=== PATIENT | male | born 1985 | race Caucasian/White ===

== ENCOUNTER 2023-01-13 07:27 | Outpatient (OUT) | payer BC, SELFPAY ==
[2023-01-13 07:44] LABS: Basophils Percent Auto 0.8 % (0.2-2.0); Eosinophils Absolute Auto 0.2 10^3/uL (0.0-0.7); Hematocrit 41.8 % (42.0-54.0); Hemoglobin 14.6 g/dL (14.0-18.0); Immature Granulocytes Abs Auto 0.01 10^3/uL (0.00-0.03); Immature Granulocytes Pct Auto 0.2 % (0.0-0.5); Lymphocytes Absolute Auto 2.6 10^3/uL (1.2-3.8); Lymphocytes Percent Auto 53.1 % (20.5-60.0); Mean Corpuscular HGB Conc 34.9 g/dL (29.9-35.2); Mean Corpuscular Hemoglobin 30.4 pg (25.9-34.0); Mean Corpuscular Volume 87.1 fL (80.0-94.0); Mean Platelet Volume 9.9 fL (9.5-13.5); Monocytes Absolute Auto 0.6 10^3/uL (0.3-0.8); Monocytes Percent Auto 11.9 % (1.7-12.0); Neutrophils Absolute Auto 1.5 10^3/uL (1.4-6.5); Platelet Count 203 10^3/uL (150-450); Red Cell Distribution Width 12.8 % (11.0-15.0)
[2023-01-13 08:14] LABS: Estimated Average Glucose 100 mg/dL; Glycohemoglobin A1C 5.1 % (4.5-6.2)
[2023-01-13 08:30] LABS: Alanine Aminotransferase 27 U/L (16-63); Albumin Globulin Ratio 1.4; Albumin Level 4.3 g/dL (3.4-5.0); Alkaline Phosphatase 46 U/L (46-116); Anion Gap 8.8; Aspartate Amino Transferase 16 U/L (15-37); BUN Creatinine Ratio 18.8; Bilirubin Total 0.5 mg/dL (0.2-1.0); Calcium 8.9 mg/dL (8.5-10.1); Carbon Dioxide 29.6 mmol/L (21.0-32.0); Chloride 105 mmol/L (98-107); Chol HDL Ratio 2.8; Cholesterol 198 mg/dL (<=200); Estimated GFR (African America >60 (>=60); Estimated GFR (Non-African Ame >60 (>=60); Globulin 3.1 g/dL; Glucose 100 mg/dL (74-106); HDL Cholesterol 71 mg/dL (40-60); Potassium 4.4 mmol/L (3.5-5.1); Sodium 139 mmol/L (136-145); Thyroid Stimulating Hormone 2.508 uIU/mL (0.358-3.740); Total Protein 7.4 g/dL (6.4-8.2); Triglycerides 52 mg/dL (<=150); VLDL CHOLESTEROL 10.4 mg/dL
[2023-01-13 08:55] LABS: Prostate Specific Antigen Scrn 0.38 ng/mL (<=4.00)
== END 2023-01-13 07:28 | disposition home or self-care (01) ==
LOC: LAB 07:32
PROVIDERS: PCP Family Medicine; Visit Provider Family Medicine
DX: Z00.00 Encounter for general adult medical examination without abnormal findings (principal)
CPT/HCPCS: 36415; 80053; 80061; 83036; 84443; 85025; G0103

== ENCOUNTER 2024-02-20 13:49 | Outpatient (OUT) | payer BC, SELFPAY | END 2024-02-20 13:50 | disposition home or self-care (01) | LOC: PST 13:49 | PROVIDERS: PCP Family Medicine; Visit Provider Surgery | DX: Z01.818 Encounter for other preprocedural examination (principal); Z12.11 Encounter for screening for malignant neoplasm of colon; Z80.0 Family history of malignant neoplasm of digestive organs ==

== ENCOUNTER 2024-02-28 07:20 | Day surgery (SDC) | payer BC, SELFPAY ==
--- NOTE | 2024-02-28 | OP_ITS ---
OPERATION DATE: 02/28/2024 PREOPERATIVE DIAGNOSIS: Personal history of colon polyps, family history of colon cancer. POSTOPERATIVE DIAGNOSIS: 2 mm distal sigmoid polyp. PROCEDURE: Colonoscopy to cecum with cold biopsy forceps polypectomy x1. SURGEON: Stevan Moon M.D. ANESTHESIA: Monitored anesthesia care. ESTIMATED BLOOD LOSS: Less than 1 mL. INDICATIONS AND CONSENT: Patient is a 39-year-old male with a personal history of colon polyps, as well as a family history of colon cancer. Indications, risks, benefits, alternatives of proceeding with colonoscopy were explained extensively to the patient, including the risks of bleeding, colon perforation or anesthetic complications. All of his questions were answered. Informed consent was obtained. PROCEDURE: Patient brought to the operating room, placed in the left lateral decubitus position. Monitored anesthesia care was provided. Rectal exam was performed which showed no masses or blood. The scope was inserted into the anal canal. Under direct visualization was advanced. It was advanced to the cecum where cecal markings were clearly identified. There was noted to be a good prep. Upon withdrawal of the scope, mucosal surfaces were carefully examined. There were no mass lesions or inflammatory changes. No significant diverticulosis. In the distal sigmoid, there was noted to be a 2 mm sessile polyp that was removed with cold biopsy forceps with good hemostasis. The scope was retroflexed in the anal canal. There was no significant hemorrhoidal disease. Scope was then withdrawn. Patient tolerated procedure well, was sent to recovery room in good condition. Follow up colonoscopy likely in five years. CC: Jaime Sam M.D. [facility]
--- OUTSIDE RECORDS SUMMARY | 2024-02-28 07:23 | XMS_ITS | CCD ---
Author Organization [facility] Inform ion [facility] Care Team Providers Care Senior Datastage Developer Name Role Phone Gildardo Jiménez Unavailable Unavailable Gildardo Jiménez Unavailable Unavailable Ralph, Luli Unavailable Unavailable Ralph, Luli Unavailable Unavailable Angelina Chelsey Unavailable Unavailable Ralph, Luli Unavailable Unavailable Ralph, Luli Unavailable Unavailable Angelina, Chelsey Unavailable Unavailable Ralph, Luli Unavailable Unavailable Ralph, Luli Unavailable Unavailable Problems Active Problems Problem Classification Problem Date Documented Da te Episodic/Chronic Malaise and fatigue (1 source) Other fatigue; Translations: [OTHER FATIGUE] Onset: 02-21-2018 Episodic Past or Other Problems Problem Classification Problem Date Documented Da te Episodic/Chronic Contraceptive and procreative management (1 source) Encounter for sterilization; Translations: [ENCOUNTER FOR STERILIZATION] Onset: 04-05-2017 Episodic Results Test Name Value Interpretation Reference Range Facil ity CBC/DIFF GROUPon 02-21-2018 ATYPICAL REACTIVE LYMPHS FEW Normal [facility] Comment on above: Order Comment: REASO N FOR EXAM Z00.00@02/21/18 181: CBC/DIFF GROUP added. RFLXG = DIFF. Performed By: #### Z CBCGR ####MAIN LABCLIA:[id number] [place] [address] Eosinophils Auto #/vol (Bld) 52 /cmm Normal <432 [facility] Comment on above: Order Comment: REASO N FOR EXAM Z00.00@02/21/181811: CBC/DIFF GROUP added. RFLXG = DIFF. Performed By: #### Z CBCGR ####MAIN LABCLIA:[id number] [place] [address] Eosinophils/100 WBC Auto (Bld) 1 % Normal <4 [facility] Comment on above: Order Comment: REASO N FOR EXAM Z00.00@02/21/181811: CBC/DIFF GROUP added. RFLXG = DIFF. Performed By: #### Z CBCGR ####MAIN LABCLIA:[id number] [facility] [place] [address] Lymphocytes Auto #/vol (Bld) 2288 /cmm Normal [phone] [facility] Comment on above: Order Comment: REASO N FOR EXAM Z00.00@02/21/181811: CBC/DIFF GROUP added. RFLXG = DIFF. Performed By: #### Z CBCGR ####MAIN LABCLIA:[id number] [place] [address] Lymphocytes/100 WBC Auto (Bld) 44 % Normal 20-44 [facility] Comment on above: Order Comment: REASO N FOR EXAM Z00.00@02/21/181811: CBC/DIFF GROUP added. RFLXG = DIFF. Performed By: #### Z CBCGR ####MAIN LABCLIA:[id number] [place] [address] Monocytes Auto #/vol (Bld) 676 /cmm Normal 96-972 [facility] Comment on above: Order Comment: REASO N FOR EXAM Z00.00@02/21/181811: CBC/DIFF GROUP added. RFLXG = DIFF. Performed By: #### Z CBCGR ####MAIN LABCLIA:[id number] [place] [address] Monocytes/100 WBC Auto (Bld) 13 % High 2-9 [facility] Comment on above: Order Comment: REASO N FOR EXAM Z00.00@02/21/181811: CBC/DIFF GROUP added. RFLXG = DIFF. Performed By: #### Z CBCGR ####MAIN LABCLIA:[id number] [facility] [place] [address] Neutrophils Auto #/vol (Bld) 2184 /cmm Low 1048-6249 [facility] Comment on above: Order Comment: REASO N FOR EXAM Z00.00@02/21/181811: CBC/DIFF GROUP added. RFLXG = DIFF. Performed By: #### Z CBCGR ####MAIN LABCLIA:[id number] [place] [address] Neutrophils/100 WBC Auto (Bld) 42 % Low 50-70 [facility] Comment on above: Order Comment: REASO N FOR EXAM Z00.00@02/21/181811: CBC/DIFF GROUP added. RFLXG = DIFF. Performed By: #### Z CBCGR ####MAIN LABCLIA:[id number] [place] [address] NORMOCHROMIC YES Normal [facility] Comment on above: Order Comment: REASO N FOR EXAM Z00.00@02/21/181811: CBC/DIFF GROUP added. RFLXG = DIFF. Performed By: #### Z CBCGR ####MAIN LABCLIA:[id number] [place] [address] NORMOCYTIC YES Normal [facility] Comment on above: Order Comment: REASO N FOR EXAM Z00.00@02/21/181811: CBC/DIFF GROUP added. RFLXG = DIFF. Performed By: #### Z CBCGR ####MAIN LABCLIA:[id number] [place] [address] Platelets Auto #/vol (Bld) NORMAL [facility] Comment on above: Order Comment: REASO N FOR EXAM Z00.00@02/21/181811: CBC/DIFF GROUP added. RFLXG = DIFF. Performed By: #### Z CBCGR ####MAIN LABCLIA:[id number] [place] [address] TOTAL CELLS COUNTED 100 Normal [facility] Comment on above: Order Comment: REASO N FOR EXAM Z00.00@02/21/181811: CBC/DIFF GROUP added. RFLXG = DIFF. Performed By: #### Z CBCGR ####MAIN LABCLIA:[id number] [place] [address] Erythrocyte distribution width Auto Ratio (RBC) 13.6 % Normal 11.5-14.5 [facility] Comment on above: Order Comment: REASO N FOR EXAM Z00.00@02/21/181811: CBC/DIFF GROUP added. RFLXG = DIFF. Performed By: #### Z CBCGR ####MAIN LABCLIA:[id number] [place] [address] Hematocrit Auto Volume Fraction (Bld) 43.2 % Normal 40.0-54.0 [facility] Comment on above: Order Comment: REASO N FOR EXAM Z00.00@02/21/181811: CBC/DIFF GROUP added. RFLXG = DIFF. Performed By: #### Z CBCGR ####MAIN LABCLIA:[id number] [place] [address] Hemoglobin mass conc (Bld) 15.1 g/dL Normal 13.5-18.0 [facility] Comment on above: Order Comment: REASO N FOR EXAM Z00.00@02/21/181811: CBC/DIFF GROUP added. RFLXG = DIFF. Performed By: #### Z CBCGR ####MAIN LABCLIA:[id number] [place] [address] MCH Auto Entitic mass (RBC) 35.0 g/dL Normal 32.0-36.0 [facility] Comment on above: Order Comment: REASO N FOR EXAM Z00.00@02/21/181811: CBC/DIFF GROUP added. RFLXG = DIFF. Performed By: #### Z CBCGR ####MAIN LABCLIA:[id number] [place] [address] MCH Auto Entitic mass (RBC) 31.5 pg High 27.0-31.0 [facility] Comment on above: Order Comment: REASO N FOR EXAM Z00.00@02/21/181811: CBC/DIFF GROUP added. RFLXG = DIFF. Performed By: #### Z CBCGR ####MAIN LABCLIA:[id number] [facility] [place] [address] MCV Auto Entitic volume (RBC) 90.0 fL Normal 80.0-96.0 [facility] Comment on above: Order Comment: REASO N FOR EXAM Z00.00@02/21/181811: CBC/DIFF GROUP added. RFLXG = DIFF. Performed By: #### Z CBCGR ####MAIN LABCLIA:[id number] [facility] [place] [address] Platelets Auto #/vol (Bld) 228 10 3/cmm Normal 130-400 [facility] Comment on above: Order Comment: REASO N FOR EXAM Z00.00@02/21/181811: CBC/DIFF GROUP added. RFLXG = DIFF. Performed By: #### Z CBCGR ####MAIN LABCLIA:[id number] [facility] [place] [address] RBC Auto #/vol (Bld) 4.80 10 6/cmm Normal 4.60-6.20 [facility] Comment on above: Order Comment: REASO N FOR EXAM Z00.00@02/21/181811: CBC/DIFF GROUP added. RFLXG = DIFF. Performed By: #### Z CBCGR ####MAIN LABCLIA:[id number] [place] [address] WBC Auto #/vol (Bld) 5.2 10 3/cmm Normal 4.8-10.8 [facility] Comment on above: Order Comment: REASO N FOR EXAM Z00.00@02/21/181811: CBC/DIFF GROUP added. RFLXG = DIFF. Performed By: #### Z CBCGR ####MAIN LABCLIA:[id number] [facility] [place] [address] COMPREHENSIVE METABOLIC PANE Alf 02-21-2018 Albumin mass conc 4.8 g/dL High 3.0-4.5 [facility] Comment on above: Order Comment: REASO N FOR EXAM Z00.00 Performed By: #### C MP, VASR ####MAIN LABCLIA:[id number] [facility] [place] [address] Albumin/Globulin mass ratio 1.8 {ratio} High 1-1.4 [facility] Comment on above: Order Comment: REASO N FOR EXAM Z00.00 Performed By: #### C MP, VASR ####MAIN LABCLIA:[id number] [facility] [place] [address] ALP enzyme act/vol 43 U/L Normal 40-129 [facility] Comment on above: Order Comment: REASO N FOR EXAM Z00.00 Performed By: #### C MP, VASR ####MAIN LABCLIA:[id number] [facility] [place] [address] ALT enzyme act/vol 23 U/L Normal 0-41 [facility] Comment on above: Order Comment: REASO N FOR EXAM Z00.00 Performed By: #### C CHANA, VASR ####MAIN LABCLIA:[id number] [facility] [place] [address] Anion gap 3 molar conc 16 mmol/L Normal 9-18 [facility] Comment on above: Order Comment: REASO N FOR EXAM Z00.00 Performed By: #### C CHANA, VASR ####MAIN LABCLIA:[id number] [facility] [place] [address] AST enzyme act/vol 22 U/L Normal 0-40 [facility] Comment on above: Order Comment: REASO N FOR EXAM Z00.00 Performed By: #### C CHANA, VASR ####MAIN LABCLIA:[id number] [facility] [place] [address] Bilirubin mass conc 0.5 mg/dL Normal 0.2-1.2 [facility] Comment on above: Order Comment: REASO N FOR EXAM Z00.00 Performed By: #### C CHANA, VASR ####MAIN LABCLIA:[id number] [facility] [place] [address] Calcium mass conc 10.0 mg/dL Normal 8.6-10.0 [facility] Comment on above: Order Comment: REASO N FOR EXAM Z00.00 Performed By: #### C MP, VASR ####MAIN LABCLIA:[id number] [facility] [place] [address] Chloride molar conc 100 mmol/L Normal 98-107 [facility] Comment on above: Order Comment: REASO N FOR EXAM Z00.00 Performed By: #### C CHANA, VASR ####MAIN LABCLIA:[id number] [place] [address] CO2 molar conc 29 mmol/L Normal 22-29 [facility] Comment on above: Order Comment: REASO N FOR EXAM Z00.00 Performed By: #### C MP, VASR ####MAIN LABCLIA:[id number] [facility] [place] [address] Creatinine mass conc 0.89 mg/dL Normal 0.70-1.20 [facility] Comment on above: Order Comment: REASO N FOR EXAM Z00.00 Performed By: #### C CHANA, VASR ####MAIN LABCLIA:[id number] [facility] [place] [address] GFR/1.73 sq M.predicted MDRD vol rate/area 103 /1.73 m2 Normal >60 mL/min [facility] Comment on above: Order Comment: REASO N FOR EXAM Z00.00 Result Comment: Norm al RangeStage Description:1 Normal or Increased GFR >=902 Mild Decrease in GFR 60-903 Moderately Decreased GFR 30-594 Severely Decreased GFR 15-295 Kidney Failure <15 Performed By: #### C CHANA, VASR ####MAIN LABCLIA:[id number] [facility] [place] [address] Globulin Calculated mass conc (S) 2.6 g/dL Normal 2.3-3.5 [facility] Comment on above: Order Comment: REASO N FOR EXAM Z00.00 Performed By: #### C CHANA, VASR ####MAIN LABCLIA:[id number] [facility] [place] [address] Glucose mass conc 87 mg/dL Normal 74-109 [facility] Comment on above: Order Comment: REASO N FOR EXAM Z00.00 Performed By: #### C MP, VASR ####MAIN LABCLIA:[id number] [facility] [place] [address] Potassium molar conc 4.5 mmol/L Normal 3.5-5.1 [facility] Comment on above: Order Comment: REASO N FOR EXAM Z00.00 Performed By: #### C MP, VASR ####MAIN LABCLIA:[id number] [facility] [place] [address] Protein mass conc 7.4 g/dL Normal 6.4-8.3 [facility] Comment on above: Order Comment: REASO N FOR EXAM Z00.00 Performed By: #### C MP, VASR ####MAIN LABCLIA:[id number] [facility] [place] [address] Sodium molar conc 140 mmol/L Normal 136-145 [facility] Comment on above: Order Comment: REASO N FOR EXAM Z00.00 Performed By: #### C MP, VASR ####MAIN LABCLIA:[id number] [facility] [place] [address] Urea nitrogen mass conc (Bld) 16 mg/dL Normal 6-20 [facility] Comment on above: Order Comment: REASO N FOR EXAM Z00.00 Performed By: #### C MP, VASR ####MAIN LABCLIA:[id number] [facility] [place] [address] Urea nitrogen/Creatinine mass ratio 18.0 mg/mg Normal [facility] Comment on above: Order Comment: REASO N FOR EXAM Z00.00 Performed By: #### C MP, VASR ####MAIN LABCLIA:[id number] [facility] [place] [address] FREE T4 (FREE THYROXINE)on 0 02-21-2018 T4 free mass conc 1.24 ng/dL Normal 0.93-1.7 [facility] Comment on above: Order Comment: REASO N FOR EXAM R53.83 Performed By: #### T 4F, TSH ####MAIN LABCLIA:[id number] [facility] [place] [address] THYROID STIMULATING HORMONEo n 02-21-2018 Thyrotropin Qn 1.85 uIU/mL Normal 0.27-4.20 [facility] Comment on above: Order Comment: REASO N FOR EXAM R53.83 Performed By: #### T 4F, TSH ####MAIN LABCLIA:[id number] [facility] [place] [address] VASCULAR RISK PANELon 2017 Cholesterol in HDL mass conc 52 mg/dL Low >55 [facility] Comment on above: Order Comment: REASO N FOR EXAM Z00.00 Performed By: #### C MP, VASR ####MAIN LABCLIA:[id number] [facility] [place] [address] Cholesterol in LDL mass conc 121 mg/dL Normal <129 [facility] Comment on above: Order Comment: REASO N FOR EXAM Z00.00 Performed By: #### C MP, VASR ####MAIN LABCLIA:[id number] [facility] [place] [address] Cholesterol mass conc 193 mg/dL Normal 0-199 [facility] Comment on above: Order Comment: REASO N FOR EXAM Z00.00 Performed By: #### C MP, VASR ####MAIN LABCLIA:[id number] [facility] [place] [address] Triglyceride mass conc 102 mg/dL Normal 0-199 [facility] Comment on above: Order Comment: REASO N FOR EXAM Z00.00 Performed By: #### C MP, VASR ####MAIN LABCLIA:[id number] [facility] [place] [address] VLDL CHOLESTEROL 20 mg/dL Normal 5-40 [facility] Comment on above: Order Comment: REASO N FOR EXAM Z00.00 Performed By: #### C MP, VASR ####MAIN LABCLIA:[id number] [facility] [place] [address] COMPREHENSIVE METABOLIC PANE Alf 04-18-2017 Albumin mass conc 4.7 g/dL High 3.0-4.5 [facility] Comment on above: Order Comment: REASO N FOR EXAM Z00.00Z00.00 Performed By: #### C MP, VASR ####MAIN LABCLIA:[id number] [facility] [place] [address] Albumin/Globulin mass ratio 2.0 {ratio} High 1-1.4 [facility] Comment on above: Order Comment: REASO N FOR EXAM Z00.00Z00.00 Performed By: #### C MP, VASR ####MAIN LABCLIA:[id number] [facility] [place] [address] ALP enzyme act/vol 47 U/L Normal 40-129 [facility] Comment on above: Order Comment: REASO N FOR EXAM Z00.00Z00.00 Performed By: #### C MP, VASR ####MAIN LABCLIA:[id number] [place] [address] ALT enzyme act/vol 15 U/L Normal 0-41 [facility] Comment on above: Order Comment: REASO N FOR EXAM Z00.00Z00.00 Performed By: #### C CHANA, VASR ####MAIN LABCLIA:[id number] [place] [address] Anion gap 3 molar conc 15 mmol/L Normal 9-18 [facility] Comment on above: Order Comment: REASO N FOR EXAM Z00.00Z00.00 Performed By: #### C CHANA, VASR ####MAIN LABCLIA:[id number] [facility] [place] [address] AST enzyme act/vol 17 U/L Normal 0-40 [facility] Comment on above: Order Comment: REASO N FOR EXAM Z00.00Z00.00 Performed By: #### C CHANA, VASR ####MAIN LABCLIA:[id number] [place] [address] Bilirubin mass conc 0.2 mg/dL Normal 0.2-1.2 [facility] Comment on above: Order Comment: REASO N FOR EXAM Z00.00Z00.00 Performed By: #### C CHANA, VASR ####MAIN LABCLIA:[id number] [facility] [place] [address] Calcium mass conc 9.6 mg/dL Normal 8.6-10.0 [facility] Comment on above: Order Comment: REASO N FOR EXAM Z00.00Z00.00 Performed By: #### C MP, VASR ####MAIN LABCLIA:[id number] [facility] [place] [address] Chloride molar conc 100 mmol/L Normal 98-107 [facility] Comment on above: Order Comment: REASO N FOR EXAM Z00.00Z00.00 Performed By: #### C CHANA, VASR ####MAIN LABCLIA:[id number] [facility] [place] [address] CO2 molar conc 30 mmol/L High 22-29 [facility] Comment on above: Order Comment: REASO N FOR EXAM Z00.00Z00.00 Performed By: #### C CHANA, VASR ####MAIN LABCLIA:[id number] [facility] [place] [address] Creatinine mass conc 0.74 mg/dL Normal 0.70-1.20 [facility] Comment on above: Order Comment: REASO N FOR EXAM Z00.00Z00.00 Performed By: #### C CHANA, VASR ####MAIN LABCLIA:[id number] [facility] [place] [address] GFR/1.73 sq M.predicted MDRD vol rate/area 129 /1.73 m2 Normal >60 mL/min [facility] Comment on above: Order Comment: REASO N FOR EXAM Z00.00Z00.00 Result Comment: Norm al RangeStage Description:1 Normal or Increased GFR >=902 Mild Decrease in GFR 60-903 Moderately Decreased GFR 30-594 Severely Decreased GFR 15-295 Kidney Failure <15 Performed By: #### C CHANA, VASR ####MAIN LABCLIA:[id number] [facility] [place] [address] Globulin Calculated mass conc (S) 2.3 g/dL Normal 2.3-3.5 [facility] Comment on above: Order Comment: REASO N FOR EXAM Z00.00Z00.00 Performed By: #### C CHANA, VASR ####MAIN LABCLIA:[id number] [facility] [place] [address] Glucose mass conc 81 mg/dL Normal 74-109 [facility] Comment on above: Order Comment: REASO N FOR EXAM Z00.00Z00.00 Performed By: #### C CHANA, VASR ####MAIN LABCLIA:[id number] [facility] [place] [address] Potassium molar conc 4.3 mmol/L Normal 3.5-5.1 [facility] Comment on above: Order Comment: REASO N FOR EXAM Z00.00Z00.00 Performed By: #### C MP, VASR ####MAIN LABCLIA:[id number] [facility] [place] [address] Protein mass conc 7.0 g/dL Normal 6.4-8.3 [facility] Comment on above: Order Comment: REASO N FOR EXAM Z00.00Z00.00 Performed By: #### C CHANA, VASR ####MAIN LABCLIA:[id number] [place] [address] Sodium molar conc 141 mmol/L Normal 136-145 [facility] Comment on above: Order Comment: REASO N FOR EXAM Z00.00Z00.00 Performed By: #### C CHANA, VASR ####MAIN LABCLIA:[id number] [place] [address] Urea nitrogen mass conc (Bld) 19 mg/dL Normal 6-20 [facility] Comment on above: Order Comment: REASO N FOR EXAM Z00.00Z00.00 Performed By: #### C CHANA, VASR ####MAIN LABCLIA:[id number] [facility] [place] [address] Urea nitrogen/Creatinine mass ratio 25.7 mg/mg Normal [facility] Comment on above: Order Comment: REASO N FOR EXAM Z00.00Z00.00 Performed By: #### C CHANA, VASR ####MAIN LABCLIA:[id number] [facility] [place] [address] VASCULAR RISK PANELon 2016 Cholesterol in HDL mass conc 56 mg/dL Normal >55 [facility] Comment on above: Order Comment: REASO N FOR EXAM Z00.00Z00.00 Performed By: #### C CHANA, VASR ####MAIN LABCLIA:[id number] [facility] [place] [address] Cholesterol in LDL mass conc 124 mg/dL Normal <129 [facility] Comment on above: Order Comment: REASO N FOR EXAM Z00.00Z00.00 Performed By: #### C MP, VASR ####MAIN LABCLIA:[id number] [facility] [place] [address] Cholesterol mass conc 205 mg/dL High 0-199 [facility] Comment on above: Order Comment: REASO N FOR EXAM Z00.00Z00.00 Performed By: #### C MP, VASR ####MAIN LABCLIA:[id number] [facility] [place] [address] Triglyceride mass conc 127 mg/dL Normal 0-199 [facility] Comment on above: Order Comment: REASO N FOR EXAM Z00.00Z00.00 Performed By: #### C MP, VASR ####MAIN LABCLIA:[id number] [facility] [place] [address] VLDL CHOLESTEROL 25 mg/dL Normal 5-40 [facility] Comment on above: Order Comment: REASO N FOR EXAM Z00.00Z00.00 Performed By: #### C MP, VASR ####MAIN LABCLIA:[id number] [facility] [place] [address] Operative Reporton 7 Operative Report [address] [place], [place] [address] ANNETTA ROLDAN II 34 [id number] Gildardo Jiménez DO 1985 Report #: [id number] Operative Report Date/Time: 04/05/17 0804 Report Status: Signed Date of Surgery: 04/05/17 Pre-Op Diagnosis: Elective Sterilization Post-Op Diagnosis: Elective Sterilization Procedure: Bilateral Vasectomy Surgeon: Gildardo Jiménez Anesthesia: General Summary of Patient: This is a 32 year old male who comes for elective sterilization by way of vasectomy. Summary of Procedure: The patient was brought to the operative suite, placed under general anesthetic in the supine position, sterilely prepped and draped in usual fashion. The right vas deferens was controlled in the right rosie-scrotal area. A small transverse incision was made with the needle tipped cutting mode of the cautery. With blunt dissection, the vas deferens was easily identified and elevated with the vasectomy clamp. The overlying coverings of the vas deferens were carefully peeled away with a 15 blade. The vas deferens was then elevated, controlled with a towel clip, and the vascular structures were carefully dissected downward. With this achieved, titanium clips were placed proximally and distally on the exposed segment of the vas deferens. 4-0 silk ties were placed above each of the clips on each side as well. The vas deferens was then divided in its midline with the 15 blade. The ends of the vas deferens were then cauterized and the lumen obliterated. With this achieved and hemostasis achieved, the ends of the vas deferens were carefully returned back into the scrotum region. The skin brought together with 3-0 chromic in simple interrupted fashion. In similar fashion, the opposite side was done and, due to redundancy, was not transcribed twice. The patient tolerated the procedure well. There were no complications. A sterile dressing was applied, along with a scrotal supporter. Patient sent to recovery room in stable condition. Electronically Signed By: Gildardo Jiménez DO Signed Date/Time: 04/05/17 0805 Electronically Cosigned By: Cosigned Date/Time: Normal [facility] Encounters Encounter Date Encounter Type Care Provider Facility Start: 02-02-2024 ambulatory Facility:[facility] Start: 02-21-2018 End: 02-21-2018 Patient encounter [facility] Facility:[facility] Start: 04-18-2017 Encounter for genera l adult medical examination without abnormal findings Gildardo Jiménez [facility] Start: 04-18-2017 End: 04-18-2017 Patient encounter [facility] Facility:[facility] Start: 04-05-2017 End: 04-05-2017 Patient encounter Gildardo Jiménez Facility:[facility] Payers Date Payer Category Payer Unknown [id number] 2014 Unknown [id number] 1985 Unknown [id number] Summary Purpose Family History No Family History Records FoundNo Family History Records Found Advance Directives No Advanced Directives Records FoundNo Advanced Directives Records Found Additional Source Comments (unrecognized sect ion and content) No Status Records FoundNo Status Records Found INFORMATION SOURCE (unrecogn ized section and content) DATE CREATED AUTHOR 03/01/2018 Mine rick DATE CREATED AUTHOR AUTHOR'S ORGANGENA ORTEGA 02/04/2024 [facility] FOR RECORDS PERTAINING TO PATIENTS WHO ARE OR HAVE BEEN ENROLLED IN A CHEMICAL DEPENDENCY/SUBSTANCEABUSE PROGRAM, SOME INFORMATION MAY BE OMITTED. This clinical summary was aggregated from multiple sources. Caution should be exercised in using it in the provision of clinical care. This summary normalizes information from multiple sources, and as a consequence, information in this document may materially change the coding, format and clinical context of patient data. In addition, data may be omitted in some cases. CLINICAL DECISIONS SHOULD BE BASED ON THE PRIMARY CLINICAL RECORDS. [facility] [facility] provides no warranty or guarantee of the accuracy or completeness of information in this document.
[2024-02-28 07:34] VITALS: BP 146/80; PULSE 69; TEMP 36.3; O2SAT 97; BMI 27.0
[2024-02-28] MEDS: LACTATED RINGER'S SOLUTION 1,000 ML 50 ML IV (07:47)
[2024-02-28 09:09] VITALS: BP 117/53; PULSE 56; TEMP 36.1; O2SAT 94
[2024-02-28 09:24] VITALS: BP 103/60; PULSE 55; O2SAT 98
[2024-02-28 09:39] VITALS: BP 113/66; PULSE 55; O2SAT 100
== END 2024-02-28 09:42 | disposition home or self-care (01) ==
PROVIDERS: PCP Family Medicine; Visit Provider Surgery
PROC: (CPT 811; principal; 2024-02-28 08:25)
DX: K63.5 Polyp of colon (principal); Z86.010 Personal history of colon polyps; Z80.0 Family history of malignant neoplasm of digestive organs
CPT/HCPCS: 45380; 88305; J2704

== ENCOUNTER 2025-04-15 09:53 | Outpatient (OUT) | payer OTHER, SELFPAY ==
--- OUTSIDE RECORDS SUMMARY | 2025-04-15 09:57 | XMS_ITS | Clinical Summary ---
Author Organization [facility] Address [address] [place] [address] Care Team Providers Care Insurance Sales Executive Name Role Phone Jaime Sam MD Primary Care Provider [phone] Social History Tobacco UseTypesPacks/DayYears UsedDateSmoking Tobacco: Never AssessedSex and Gender InformationValueDate RecordedSex Assigned at BirthNot on fileLegal Sex Male10/17/2022 8:34 PM EDTGender IdentityNot on fileSexual OrientationNot on file Plan of Treatment Not on file Care Teams Team MemberRelationshipSpecialtyStart DateEnd Date Jaime Sam MD PCP - GeneralFamily Medicine01/09/23
--- OUTSIDE RECORDS SUMMARY | 2025-04-15 09:57 | XMS_ITS | Patient Health Record ---
Author Organization [facility] Billing Info Address [address] [place], [place] [address] Care Team Providers Care In Store Representative Name Role Phone GUERRERO ROSAS Primary Care Provider Allergies No Known Allergies Reason For Referral No Information Medications Medication SIG (Take, Route, Frequency, Duration) Notes Start Date End Date Status Zithromax Z-Mike 250 MG as directed (2 ta blets on day 1 then 1 tab daily for 4 days) Orally Once a day for 5 day(s) 04/26/2021ctiveAllegra-D 24 HourprnActiveRizatriptan Benzoate 10 MG1 tablet Orally Take at onset of migraine. May repeat in 1 month. for 30 day(s)02/15/2021 ActiveNasonex 50 MCG/ACT2 sprays in each nostril Nasally Once a day for 30 day(s)ActiveOlopatadine HCl 0.1 %1 drop into affected eye Ophthalmic Twice a day for 90 day(s)10/10/2018ActiveValtrex 1 GM1 tablet Orally Once a day for 90 day(s)prn1ActiveFluticasone Propionate 50 MCG/ACT2 spray in each nostril Nasally Once a day for 90 day(s)05/26/2021ctiveTopiramate 25 MG1 tablet Orally QHS for headache prevention for 90 day(s)02/15/2021ctiveAugmentin 875- 125 MG1 tablet Orally every 12 hrs for 10 day(s)04/26/2021ctiveCelecoxib 100 MG 1 capsule with food Orally BID for 90 day(s)05/24/2021ActiveFexofenadine- Pseudoephed ER 180-240 MG1 tablet Orally Once a day for 30 day(s)05/26/2021 Active Social History Tobacco Use: Social History Observation Description Date Details (start date - stop date) Never Smoker NA - NA Tobacco Status: Question Answer Notes Patient is a never smoker Problems Problem Type SNOMED Code ICD Code Onset Dates Problem Status W/U Status Risk Notes Problem 695625533 Seasonal allergies (J30.2) [id number] hx of colon cancer (Z80.0)Activeconfirmed Had normal colonoscopy with plan for repeat in 8 years. Family hx includes Aunt who passed at 46 from metastatic colon cancer, Dad has colonoscopy every 5 years. Uncle has had a lot of polyps and sister who had polyps on colonoscopy for celiac diseaseProblemOcular migraine (75515625)Ocular migraine (G43.109) [id number] colonic polyp, unspecified part of colon (K63.5)Activeconfirmedper colonoscopy in 2014, showing 2 hyperplastic polyps, plan for repeat in 8 years. Plan Of Treatment Pending Test Test Name Order Date Complete Blood Count with Auto Diff (IH- CBC) 10/18/2018 Comprehensive Metabolic Panel (-CMP) 0 10/18/2018 Lipid Panel (-LIPID) 10/18/2018 Insurance Providers Payer Name Payer Address Payer Phone Subscriber Number Group Number Insured Name Patient Relationship to Insured Coverage Start Date Coverage End Date [facility] [employer] [address] [place], [place] [id number] Kenrick Rosas Self - patient is the insured Medications Administered Medication Instructions Date of Administration Dosage Notes CefTRIAXone (Rocephin) 03/14/20191000 mgTriamcinolone Acetonide (Kenalog)03/14/201940 mg Medical (General) History Medical History History ICD Code Seasonal allergies J30.2 Ocular migraine G43.109 Ocular migraine Z80.0 Family hx of colon cancer K63.5 Hyperplastic colonic polyp, unspecified part of colon Surgical History Surgery Date(Month/Year) ACL: Left Lumbar microdisctomyVasectomy
[2025-04-15 11:27] LABS: Hematocrit 42.0 % (42.0-54.0); Hemoglobin 14.8 g/dL (14.0-18.0); Immature Granulocytes Abs Auto 0.00 10^3/uL (0.00-0.03); Immature Granulocytes Pct Auto 0.0 % (0.0-0.5); Lymphocytes Absolute Auto 1.8 10^3/uL (1.2-3.8); Mean Corpuscular HGB Conc 35.2 g/dL (29.9-35.2); Mean Corpuscular Hemoglobin 30.7 pg (25.9-34.0); Mean Corpuscular Volume 87.1 fL (80.0-94.0); Platelet Count 221 10^3/uL (150-450); Red Blood Count 4.82 10^6/uL (4.70-6.10); White Blood Count 4.5 10^3/uL (4.0-11.0)
[2025-04-15 12:54] LABS: Alanine Aminotransferase 21 U/L (16-63); Albumin Globulin Ratio 1.5; Albumin Level 4.5 g/dL (3.4-5.0); Alkaline Phosphatase 48 U/L (46-116); Anion Gap 9.5; Aspartate Amino Transferase 18 U/L (15-37); Blood Urea Nitrogen 12.0 mg/dL (7.0-18.0); Calcium 9.5 mg/dL (8.5-10.1); Carbon Dioxide 30.8 mmol/L (21.0-32.0); Chloride 104 mmol/L (98-107); Cholesterol 193 mg/dL (<=200); Estimated GFR (African America >60 (>=60 mL/min/1.73m^2); Estimated GFR (Non-African Ame >60 (>=60 mL/min/1.73m^2); Globulin 3.0 g/dL; Glucose 94 mg/dL (74-106); HDL Cholesterol 61 mg/dL (40-60); Potassium 4.3 mmol/L (3.5-5.1); Sodium 140 mmol/L (136-145); Thyroid Stimulating Hormone 1.420 uIU/mL (0.358-3.740); Total Protein 7.5 g/dL (6.4-8.2); Triglycerides 57 mg/dL (<=150); VLDL CHOLESTEROL 11.4 mg/dL
== END 2025-04-15 09:54 | disposition home or self-care (01) ==
PROVIDERS: PCP Family Medicine; Visit Provider Family Medicine
DX: Z00.00 Encounter for general adult medical examination without abnormal findings (principal); Z12.5 Encounter for screening for malignant neoplasm of prostate
CPT/HCPCS: 36415; 80053; 80061; 83036; 84443; 85025; G0103